=== PATIENT | female | born 1940 | race Caucasian/White ===

== ENCOUNTER 2018-04-22 11:42 | Emergency (ER) | payer BC ==
[2018-04-22] MEDS ORDERED: 0.9 % SODIUM CHLORIDE 1,000 ML BAG IV ONE (12:49)
[2018-04-22 13:26] LABS: BASO % 0.4 % (0-6); EOS % 0.8 % (0-6); GRAN % 77.9 % (47-80); HEMATOCRIT 42.4 % (35.0-47.0); HEMOGLOBIN 13.8 gm/dl (11.6-16.0); LYMPH % 11.6 % (16-45); MEAN CELL VOLUME 88.1 fl (81-97); MEAN CORPUSCULAR HEMOGLOBIN 28.7 pg (27-33); MEAN CORPUSCULAR HGB CONC 32.5 g/dl (32-36); MEAN PLATELET VOLUME 9.5 fl (7.4-10.4); MONO % 9.3 % (0-9); PLATELET COUNT 199 K/uL (130-400); RED BLOOD COUNT 4.81 M/uL (3.80-5.40); RED CELL DISTRIBUTION WIDTH 15.2 % (11.5-14.5); WHITE BLOOD COUNT W/O DIFF 7.8 K/uL (4.2-12.2)
[2018-04-22 13:40] LABS: BILIRUBIN,TOTAL 1.1 mg/dL (0.2-1.0)
[2018-04-22 13:45] LABS: ALB/GLOB RATIO 1.3 (1.1-1.8); ALBUMIN 3.4 g/dL (4.0-5.0)
[2018-04-22] MEDS ORDERED: ONDANSETRON HCL IV 4 MG/2 ML VIAL IVP ONE (14:20)
[2018-04-22] MEDS ORDERED: MORPHINE SULFATE 10 MG/ML VIAL IVP ONE ×2 (14:20→14:56)
--- NOTE | 2018-04-22 16:26 | Emergency Department Record ---
History of Present Illness - General Chief complaint: Weakness Stated complaint: WEAKNESS, CANT EAT Time Seen by Provider: 04/22/18 12:25 Source: Patient, Family Mode of Arrival: Ambulatory Limitations: No limitations - History of Present Illness Initial comments: pt has been having problems with constipation and diarrhea for months. she states she has no urge to push and can feel nothing in the rectal area.she had diarrhea during the night after an enema. she has decreased appetite and states she doesnt feel well. her daughter is wondering if she has an obstruction. she was incontinent of stool MD Complaint: Generalized weakness, Lack of energy Onset/Timin -: Month(s) Severity scale (1-10): 6 Quality: Other Consistency: Intermittent Improves with: Medication Associated Symptoms: Loss of appetite, Nausea/vomiting - [place] Coma Scale Eye Response: (4) Open spontaneously Motor Response: (6) Obeys commands Verbal Response: (5) Oriented [place] Total: 15 - Symptoms of Stroke Symptoms of stroke: Muscle Weakness - Related Data Home Medications Medication Instructions Recorded Confirmed Last Taken Ferrous Sulfate, Dried [Iron] 160 mg PO DAILY 04/22/18 04/22/18 04/22/18 Oxybutynin Chloride [Ditropan Xl] 10 mg PO DAILY 04/22/18 04/22/18 04/22/18 Pantoprazole Sodium [Protonix] 40 mg PO DAILY 04/22/18 04/22/18 04/22/18 Potassium Chloride 10 meq PO DAILY 04/22/18 04/22/18 04/22/18 Vit27,Calcium/Iron/FA 1 each PO DAILY 04/22/18 04/22/18 04/22/18 [Trinatal Rx 1 Tablet] Allergies Allergy/AdvReac Type Severity Reaction Status Date / Time No Known Drug Allergies Allergy Verified 04/22/18 12:05 Travel Screening - Travel/Exposure Within Last 30 Days Have you traveled within the last 30 days?: No - Travel/Exposure Within Last Year Have you traveled outside the [place] in the last year?: No - Additonal Travel Details Have you been exposed to anyone with a communicable illness?: No - Travel Symptoms Symptom Screening: None Review of Systems Reviewed: No additional complaints except as noted below Constitutional: Reports: As per HPI. Denies: Chills, Fever, Malaise, Night sweats, Weakness, Weight change Eyes: Reports: As per HPI. Denies: Eye discharge, Eye pain, Photophobia, Vision change ENT: Reports: As per HPI. Denies: Congestion, Dental pain, Ear pain, Epistaxis , Hearing loss, Throat pain Respiratory: Reports: As per HPI. Denies: Cough, Dyspnea, Hemoptysis, Stridor, Wheezes Cardiovascular: Reports: As per HPI. Denies: Arrhythmia, Chest pain, Dyspnea on exertion, Edema, Murmurs, Orthopnea, Palpitations, Paroxysmal nocturnal dyspnea, Rheumatic Fever, Syncope Endocrine: Reports: As per HPI. Denies: Fatigue, Heat or cold intolerance, Polydipsia, Polyuria Gastrointestinal: Reports: As per HPI, Constipation, Diarrhea. Denies: Abdominal pain, Hematemesis, Hematochezia, Melena, Nausea, Vomiting Genitourinary: Reports: As per HPI, Incontinence. Denies: Abnormal menses, Discharge, Dyspareunia, Dysuria, Frequency, Hematuria, Retention, Urgency Musculoskeletal: Reports: As per HPI. Denies: Arthralgia, Back pain, Gout, Joint swelling, Myalgia, Neck pain Skin: Reports: As per HPI. Denies: Bruising, Change in color, Change in hair/ nails, Lesions, Pruritus, Rash Neurological: Reports: As per HPI. Denies: Abnormal gait, Confusion, Headache, Numbness, Paresthesias, Seizure, Tingling, Tremors, Vertigo, Weakness Psychiatric: Reports: As per HPI. Denies: Anxiety, Auditory hallucinations, Depression, Homicidal thoughts, Suicidal thoughts, Visual hallucinations Hematological/Lymphatic: Reports: As per HPI. Denies: Anemia, Blood Clots, Easy bleeding, Easy bruising, Swollen glands Past Medical History - SOCIAL HISTORY Smoking Status: Former smoker Alcohol Use: None Drug Use: None - RESPIRATORY Hx Respiratory Disorders: No - CARDIOVASCULAR Hx Cardio Disorders: No - NEURO Hx Neuro Disorders: Yes Hx Dementia: Yes - GI Hx GI Disorders: Yes Hx Abdominal Pain: Yes Hx Diverticulitis: Yes (1979) - Hx Genitourinary Disorders: Yes Hx UTI: Yes - ENDOCRINE Hx Endocrine Disorders: No - PSYCH Hx Psych Problems: Yes Hx Anxiety: Yes Hx Depression: Yes - HEMATOLOGY/ONCOLOGY Hx Hematology/Oncology Disorders: Yes Hx Cancer: Yes (2011) Family Medical History Any Significant Family History?: Yes Hx Cancer: Mother Hx Heart Disease: Mother, Children Physical Exam - General General Appearance: Alert, Oriented x3, Cooperative, Mild distress - Head Head exam: Normal inspection - Eye Eye exam: Normal appearance, PERRL, EOMI Pupils: Normal accommodation - ENT ENT exam: Normal exam, Mucous membranes moist, Normal external ear exam, Normal orophraynx Ear exam: Normal external inspection. negative: External canal tenderness Nasal Exam: Normal inspection. negative: Discharge, Sinus tenderness Mouth exam: Normal external inspection, Tongue normal Teeth exam: Normal inspection. negative: Dental caries Throat exam: Normal inspection. negative: Tonsillar erythema, Tonsillar exudate - Neck Neck exam: Normal inspection, Full ROM. negative: Tenderness - Respiratory Respiratory exam: Normal lung sounds bilaterally. negative: Respiratory distress - Cardiovascular Cardiovascular Exam: Regular rate, Normal rhythm, Normal heart sounds - GI/Abdominal GI/Abdominal exam: Soft, Normal bowel sounds. negative: Tenderness - Rectal Rectal exam: Decreased rectal tone - exam: Deferred - Extremities Extremities exam: Normal inspection, Full ROM, Normal capillary refill. negative: Tenderness - Back Back exam: Reports: Normal inspection, Full ROM. Denies: Muscle spasm, Rash noted, Tenderness - Neurological Neurological exam: Alert, CN II-XII intact, Motor sensory deficit (in rectal area), Normal gait, Oriented X3 - Psychiatric Psychiatric exam: Normal affect, Normal mood - Skin Skin exam: Dry, Intact, Normal color, Warm Course Vital Signs 04/22/18 04/22/18 04/22/18 12:22 13:12 14:20 Temperature 97.9 F Pulse Rate [ 118 H 91 H 94 H Pulse Ox Probe] Respiratory 16 Rate Blood Pressure 112/78 140/86 133/89 [Left Arm] Pulse Ox 91 L 98 94 L 04/22/18 16:00 Temperature Pulse Rate [ 90 Pulse Ox Probe] Respiratory Rate Blood Pressure 128/79 [Left Arm] Pulse Ox 94 L - Reevaluation(s) Reevaluation #1: 04/22/18 16:29 ct shows large ball of stool causing possible ischemia to rectal wall. 3 different nurses attemoted disimpaction but could not reach the stool ball. also pt has no rectal tone and comp fxs of L1 and L5 w retropulsion possibly causing cauda equina syndrome. Medical Decision Making - Lab Data Result diagrams: 04/22/18 12:55 04/22/18 12:55 Lab Results 04/22/18 04/22/18 04/22/18 Range/Units 12:55 12:55 12:55 WBC 7.8 (4.2-12.2) K/uL RBC 4.81 (3.80-5.40) M/uL Hgb 13.8 (11.6-16.0) gm/dl Hct 42.4 (35.0-47.0) % MCV 88.1 (81-97) fl MCH 28.7 (27-33) pg MCHC 32.5 (32-36) g/dl RDW 15.2 H (11.5-14.5) % Plt Count 199 (130-400) K/uL MPV 9.5 (7.4-10.4) fl Gran % 77.9 (47-80) % Lymphocytes % 11.6 L (16-45) % Monocytes % 9.3 H (0-9) % Eosinophils % 0.8 (0-6) % Basophils % 0.4 (0-6) % Sodium 144 (136-145) mmol/L Potassium 4.0 (3.4-4.5) mmol/L Chloride 105 (98-107) mmol/L Carbon Dioxide 26.0 (22-29) mmol/L Anion Gap 13.0 (7-16) BUN 19 (8-23) mg/dL Creatinine 1.0 H (0.5-0.9) mg/dL Estimated GFR 57 mL/min Random Glucose 102 (74-109) mg/dL Lactic Acid (0.5-2.2) mmol/L Calcium 9.1 (8.8-10.2) mg/dL Total Bilirubin 1.10 H (0.2-1.0) mg/dL AST 40 H (10.0-35.0) U/L ALT 11 (<33) U/L Alkaline Phosphatase 146 H (45-87) U/L NT-Pro-B Natriuret Pep 774.50 H (<450) pg/mL Total Protein 6.0 L (6.6-8.7) g/dL Albumin 3.4 L (4.0-5.0) g/dL Globulin 2.6 (1.4-4.8) gm/dL Albumin/Globulin Ratio 1.3 (1.1-1.8) Lipase 8 L (13-60) U/L 04/22/18 Range/Units 14:35 WBC (4.2-12.2) K/uL RBC (3.80-5.40) M/uL Hgb (11.6-16.0) gm/dl Hct (35.0-47.0) % MCV (81-97) fl MCH (27-33) pg MCHC (32-36) g/dl RDW (11.5-14.5) % Plt Count (130-400) K/uL MPV (7.4-10.4) fl Gran % (47-80) % Lymphocytes % (16-45) % Monocytes % (0-9) % Eosinophils % (0-6) % Basophils % (0-6) % Sodium (136-145) mmol/L Potassium (3.4-4.5) mmol/L Chloride (98-107) mmol/L Carbon Dioxide (22-29) mmol/L Anion Gap (7-16) BUN (8-23) mg/dL Creatinine (0.5-0.9) mg/dL Estimated GFR mL/min Random Glucose (74-109) mg/dL Lactic Acid 0.9 (0.5-2.2) mmol/L Calcium (8.8-10.2) mg/dL Total Bilirubin (0.2-1.0) mg/dL AST (10.0-35.0) U/L ALT (<33) U/L Alkaline Phosphatase (45-87) U/L NT-Pro-B Natriuret Pep (<450) pg/mL Total Protein (6.6-8.7) g/dL Albumin (4.0-5.0) g/dL Globulin (1.4-4.8) gm/dL Albumin/Globulin Ratio (1.1-1.8) Lipase (13-60) U/L Disposition Disposition: Transfer Transfer To: [facility] Reason For Transfer: needs mri, surgeon Accepting Physician: mindy akbar elnabitity, subedi Time Discussed w/Accepting Physician: 17:30 Forms: Patient Portal Access Quality - Quality Measures Quality Measures: N/A - Blood Pressure Screening Does Patient Have Any of the Following: No Blood Pressure Classification: Normal BP Reading Systolic Measurement: 108 Diastolic Measurement: 67 Screening for High Blood Pressure: < Normal BP, F/U Not Required > [G5263]
[2018-04-22 16:34] LABS: URINE APPEARANCE CLOUDY; URINE BILIRUBIN SMALL (NEGATIVE); URINE BLOOD NEGATIVE (NEGATIVE); URINE COLOR YELLOW; URINE GLUCOSE (UA) NEGATIVE (NEGATIVE); URINE KETONE NEGATIVE (NEGATIVE); URINE LEUKOCYTE ESTERASE MODERATE (NEGATIVE); URINE NITRITE NEGATIVE (NEGATIVE)
[2018-04-22 18:39] LABS: URINE RBC 0 - 2 (NONE SEEN); URINE WBC >50 (0-2/hpf)
[2018-04-22 18:40] LABS: URINE BACTERIA 4+; URINE EPITHELIAL CELLS NONE SEEN (FEW)
--- NOTE | 2018-04-24 14:57 | CT SCAN REPORT ---
EXAM: CT SCAN OF THE ABDOMEN AND PELVIS HISTORY: PATIENT HAS CONSTIPATION AND DIARRHEA. TECHNIQUE: Serial axial CT scan of the abdomen and pelvis was performed at 2.5 mm intervals from the dome of the diaphragm down to the pubic symphysis without the use of intravenous or oral contrast. Comparison: CT scan of the abdomen and pelvis dated 10/16/17 is provided. FINDINGS: The lung windows of the lung bases demonstrates no CT evidence of a focal infiltrate or pleural effusion. The visualized heart size and contour is within normal limits. Mild pericardial effusion is again noted similar to the previous CT scan. Multiple foci of calcification are identified within the subdiaphragmatic space. This finding may be within the liver capsule. This is identified predominantly on the right side. Although, there are areas within the subdiaphragmatic space adjacent to the left hepatic lobe. These findings are likely dystrophic. They are unchanged with respect to the prior CT scan. There is intrahepatic biliary consistent with the patient's post cholecystectomy status. Cholecystectomy clips are identified within the right upper quadrant of the abdomen. The spleen, pancreas, and right adrenal gland are unremarkable. Within the left renal vein, there is a 10 mm nodule which is unchanged with respect to the prior CT scan. The bilateral kidneys demonstrate no CT evidence of hydronephrosis or hydroureter. No renal or ureteral calculi are noted. A small exophytic lesion from the superior pole of the left kidney is unchanged with respect to the prior CT scan. The contour and caliber of the abdominal aorta is within normal limits. There is no CT evidence of retroperitoneal, pelvic, or inguinal lymphadenopathy. The bowel gas pattern is nonobstructive. There is moderate rectal wall thickening with an impacted stool ball. The rectal wall thickening may be reactive due to the impacted stool ball and/or may be related to infectious or inflammatory etiologies. Clinical correlation is recommended. Diverticulosis is noted without CT evidence of diverticulitis. There is no CT evidence of free intraperitoneal fluid or free intraperitoneal air. Postoperative changes of the stomach are identified. There is no CT evidence of free intraperitoneal fluid or free intraperitoneal air. The urinary bladder is unremarkable. The uterus is absent. There is a fat containing right indirect inguinal hernia. This finding is unchanged with respect to the prior examination. Bone windows demonstrate significant anterior compression deformity of the L1 vertebral body. This finding is unchanged with respect to the prior CT scan. IMPRESSION: 1. THERE IS THICKENING OF THE RECTAL WALL WITH A RECTAL STOOL BALL. THE COLONIC WALL THICKENING OF THE RECTUM MAY BE RELATED TO INFECTIOUS VERSUS INFLAMMATORY VERSUS ISCHEMIC ETIOLOGIES. CLINICAL CORRELATION IS RECOMMENDED. PLEASE NOTE THAT THERE IS QUESTIONABLE AIR WITHIN THE ANTERIOR WALL OF THE RECTUM. THIS FINDING MAY BE RELATED TO ISCHEMIC CHANGES OF THE RECTAL WALL FROM IMPACTION OF THE RECTAL STOOL BALL. AGAIN CLINICAL CORRELATION IS RECOMMENDED. 2. COMPRESSION DEFORMITY OF THE L1 VERTEBRAL BODY IS UNCHANGED WITH RESPECT TO THE PRIOR CT SCAN. 3. RIGHT SUBDIAPHRAGMATIC CALCIFIED DENSITIES ARE UNCHANGED WITH RESPECT TO THE PRIOR EXAMINATION. 4. THESE FINDINGS WERE DISCUSSED WITH DR. PARIS IN THE EMERGENCY DEPARTMENT ON 04/22/18 AT 2:06 P.M. JOB NUMBER: [id number] MTDD
== END 2018-04-22 18:45 | disposition short-term general hospital (02) ==
LOC: ER 11:42
DX: R33.9 Retention of urine, unspecified (principal); R53.1 Weakness; R63.0 Anorexia; R11.2 Nausea with vomiting, unspecified; R19.7 Diarrhea, unspecified; Z87.891 Personal history of nicotine dependence; K55.9 Vascular disorder of intestine, unspecified; K56.41 Fecal impaction
CPT/HCPCS: 74176; 80053; 81001; 83605; 83690; 83880; 85025; 96374; 96375; 96376; 99285; J2270; J2405; J7030